=== PATIENT | female | born 1965 | race Caucasian/White ===

== ENCOUNTER 2021-01-04 13:58 | Outpatient (CLI) | payer BC, SELFPAY | END 2021-01-04 13:59 | disposition home or self-care (01) | LOC: ANHCOVIDVC 13:58 | PROVIDERS: PCP Family Medicine | DX: Z23 Encounter for immunization (principal) | CPT/HCPCS: 0001A; 91300 ==

== ENCOUNTER 2021-01-25 13:59 | Outpatient (CLI) | payer BC, SELFPAY | END 2021-01-25 14:00 | disposition home or self-care (01) | LOC: ANHCOVIDVC 13:59 | PROVIDERS: PCP Family Medicine | DX: Z23 Encounter for immunization (principal) | CPT/HCPCS: 0002A; 91300 ==

== ENCOUNTER 2021-05-22 01:11 | Day surgery (SDC) | payer BC, SELFPAY ==
[2021-05-09 09:21] VITALS: BMI 32.3
[2021-05-22 10:19] VITALS: BP 122/80; PULSE 100; RESP 16; TEMP 36; O2SAT 100
[2021-05-22] MEDS: LACTATED RINGERS 1,000 ML 150 ML IV CONT (10:43)
--- NOTE | 2021-05-22 10:43 | P.PNAN_ITS ---
Anes - Initial Pre Proc Eval Procedure: Operation Date: 05/22/21 11:15 Proposed Procedures p Esophagogastroduodenoscopy & Colonoscopy - Josemanuel Ruby MD Date/Time: 05/22/21 10:43 Surgeon: Josemanuel Ruby MD Pre Op Diagnosis: iron def anemia Patient Data Age: 55 Gender: F Height: 1.65 m Weight: 87.4 kg Last Vital Signs Temp 36.0 C L 05/22/21 10:19 Pulse 100 05/22/21 10:19 Resp 16 05/22/21 10:19 BP 122/80 05/22/21 10:19 Pulse Ox 100 05/22/21 10:19 Allergies Allergy/AdvReac Type Severity Reaction Status Date / Time moxifloxacin Allergy Severe swelling Verified 05/22/21 10:18 Penicillins Allergy Severe hives/swelling/diff Verified 05/22/21 10:18 breathing Home Medications Medication Instructions Recorded Confirmed Type omeprazole 40 mg capsule,delayed 40 mg PO DAILY #90 cap 12/18/19 05/09/21 Rx release ergocalciferol (vitamin D2) 1,250 50,000 unit PO WEEKLY #14 cap 02/26/20 05/09/21 Rx mcg (50,000 unit) capsule fluoxetine 20 mg capsule 20 mg PO DAILY #90 cap 04/07/21 05/09/21 Rx levothyroxine 88 mcg tablet 88 mcg PO DAILY #90 tablet 04/07/21 05/09/21 Rx Thrive Multivitamin 1 tablet PO DAILY 05/09/21 05/09/21 History loratadine [Claritin] 10 mg PO DAILY 05/09/21 05/09/21 History naproxen sodium [Aleve] 220 mg PO BID PRN 05/09/21 05/09/21 History Patient hx anesthesia problems: none Family hx anesthesia problems: none PMFSH Past Medical History Medical History Hypotension Hypothyroidism (acquired) MDD (major depressive disorder), recurrent episode, moderate Surgical History Surgical History (Updated 05/22/21 @ 10:43 by Bobby Gonzalez MD) [place] teeth extracted Family History Family History Mother Family history of thyroid disease Social History Social History Social History: Smoking status: Never smoker Second hand tobacco smoke exposure: No Alcohol intake: current Drinks per week: 2 Alcohol use details: Socially- once per month Substance use: never Substance use type: does not use Living arrangements: with family Gender identity (if verbalized by the patient): Female Spiritual care concerns: No Anes - Eval Final PreProcedure Day of Procedure 05/22/21 10:43 Patient weight: obese Heart: regular rate and rhythm Lungs: clear to auscultation Airway: Mallampati scale class II Neurological: alert and oriented Last oral intake: >/= 8 hours ASA classification: II Emergent: no Anesthetic plan: proceed Anesthesia type and monitoring: general GIVS and standard monitoring Informed Consent: The patient's anesthetic plan and its attendant risks and b enefits were discussed with the patient/family/POA. Questions were solicited and answers provided to the satisfaction of the patient/family/POA.
--- NOTE | 2021-05-22 10:53 | PM.HPGS ---
History of Present Illness History of Present Illness Consent: Risks, benefits, and alternatives have been discussed and questions answered. Patient agrees to proceed with procedure. Chief complaint: iron def anemia Narrative: Barbara Castro is a 55 year old female with gerd better with omeprazole, recent CXR showed possible hiatal hernia. She neve had scopes. Review of Systems Constitutional: Constitutional: Denies headache(s) and Denies weakness Eyes: Eyes: Denies blurry vision ENT: Reports Normal hearing present, Denies headache(s) and Denies neck pain Cardiovascular: Cardiovascular: Denies chest pain and Denies dyspnea Respiratory: Respiratory: Denies dyspnea Gastrointestinal: Gastrointestinal: Reports no additional gastrointestinal complaints Genitourinary: Genitourinary: Denies dysuria Musculoskeletal: Musculoskeletal: Denies neck pain Integumentary/Breasts: Skin/Breast: Denies dry skin Neurologic: Reports Normal hearing present, Denies headache(s) and Denies weakness Psychiatric: Psychiatric: Denies anxiety Endocrine: Endocrine: Denies change in body appearance Hematologic/Lymphatic: Hematologic/Lymphatic: Denies easy bleeding Allergic/Immunologic: Allergic/Immunologic: Denies urticaria PMFSH Past Medical History Medical History Hypotension Hypothyroidism (acquired) MDD (major depressive disorder), recurrent episode, moderate Surgical History Surgical History (Updated 05/22/21 @ 10:43 by Bobby Gonzalez MD) [place] teeth extracted Family History Family History Mother Family history of thyroid disease Social History Social History Social History: Smoking status: Never smoker Second hand tobacco smoke exposure: No Alcohol intake: current Drinks per week: 2 Alcohol use details: Socially- once per month Substance use: never Substance use type: does not use Living arrangements: with family Gender identity (if verbalized by the patient): Female Spiritual care concerns: No Meds Home Medications and Allergies Home Medications Medication Instructions Recorded Confirmed Type omeprazole 40 mg capsule,delayed 40 mg PO DAILY #90 cap 12/18/19 05/09/21 Rx release ergocalciferol (vitamin D2) 1,250 50,000 unit PO WEEKLY #14 cap 02/26/20 05/09/21 Rx mcg (50,000 unit) capsule fluoxetine 20 mg capsule 20 mg PO DAILY #90 cap 04/07/21 05/09/21 Rx levothyroxine 88 mcg tablet 88 mcg PO DAILY #90 tablet 04/07/21 05/09/21 Rx Thrive Multivitamin 1 tablet PO DAILY 05/09/21 05/09/21 History loratadine [Claritin] 10 mg PO DAILY 05/09/21 05/09/21 History naproxen sodium [Aleve] 220 mg PO BID PRN 05/09/21 05/09/21 History Allergies Allergy/AdvReac Type Severity Reaction Status Date / Time moxifloxacin Allergy Severe swelling Verified 05/22/21 10:18 Penicillins Allergy Severe hives/swelling/diff Verified 05/22/21 10:18 breathing Vital Signs Vital Signs - 24 hr 05/22/21 10:19 Temperature 96.8 F L Pulse Rate 100 Respiratory Rate 16 Blood Pressure 122/80 Pulse Oximetry 100 Exam Const: General: comfortable and no acute distress HENMT: General nose exam: Normal nares present Eyes: General: appearance normal, both eyes and all related structures Neck: Neck: no JVD Resp: Auscultation: clear to auscultation bilaterally Cardio: Rate: regular rate Rhythm: regular rhythm GI: Inspection: non-distended GI Palp: Yes Soft to palpation Skin: General skin exam: normal color Neuro: General: gait normal Speech: normal speech Extrem: General: normal to inspection Psych: Mental Status: mental status grossly normal Assessment and Plan Assessment and plan (1) GERD (gastroesophageal reflux disease): Code(s): K21.9 - Gastro-esophageal reflux disease without esophagitis
[2021-05-22 11:24] LABS: Beta HCG Quantitative < 2.39 mIU/ML
[2021-05-22] MEDS: BENZOCAINE (*SP) 60 ML SPRAY CAN (HURRICAINE) 1 SPRAY MUCOUS MEM (11:48)
[2021-05-22 12:19] VITALS: BP 114/63; PULSE 61; RESP 16; O2SAT 97
[2021-05-22 12:29] VITALS: BP 100/54; PULSE 61; RESP 15; O2SAT 100
[2021-05-22 12:39] VITALS: BP 112/70; PULSE 67; RESP 18; O2SAT 100
== END 2021-05-22 12:57 | disposition home or self-care (01) ==
PROVIDERS: Anesthesiology; PCP Family Medicine; Visit Provider Internal Medicine Gastroenterology
PROC: 0DJ08ZZ Inspection of Upper Intestinal Tract, Via Natural or Artificial Opening Endoscopic (ICD-10-PCS; CPT 43235; principal; 2021-05-22 11:15)
DX: Z12.11 Encounter for screening for malignant neoplasm of colon (principal); K57.30 Diverticulosis of large intestine without perforation or abscess without bleeding; K64.8 Other hemorrhoids; K29.50 Unspecified chronic gastritis without bleeding; D50.0 Iron deficiency anemia secondary to blood loss (chronic); I95.9 Hypotension, unspecified; E03.9 Hypothyroidism, unspecified; F32.9 Major depressive disorder, single episode, unspecified; E66.9 Obesity, unspecified; Z68.32 Body mass index [BMI] 32.0-32.9, adult; K44.9 Diaphragmatic hernia without obstruction or gangrene
CPT/HCPCS: 45378; 43239; 36415; 84702; 88305; J2704; J7120

== ENCOUNTER 2021-06-01 08:33 | Emergency (ER) | payer BC, SELFPAY ==
--- NOTE | ~2021-06-01 | US_ITS ---
EXAMINATION: US right upper quadrant DATE: 06/01/2021 10:51 INDICATION: Right upper quadrant abdominal pain. Abnormal liver function tests. TECHNIQUE: Multiple grayscale and Doppler ultrasound images of the abdomen were obtained. COMPARISON: None FINDINGS: The visualized portions of the head and the pancreas are normal. The liver is notable witho ut focal lesion. No liver surface nodularity. There is normal flow in main portal vein. The gallbladd er is normal in size and contains sludge. No gallstones or gallbladder wall thickening. There was no sonographic Horton sign. The common duct is normal and measures 5 mm. IMPRESSION: 1. Gallbladder sludge. No evidence of acute cholecystitis. Reviewed, dictated and finalized at location A.
[2021-06-01 08:50] VITALS: BP 117/72; PULSE 85; RESP 16; TEMP 37; O2SAT 99
[2021-06-01 09:42] LABS: Basophils Percent Auto 0.5 % (0.2-1.2); Eosinophils Absolute Auto 0.3 K/mm3 (0-0.3); Eosinophils Percent Auto 3.9 % (0-4.4); Hematocrit 32.5 % (37.0-47.0); Immature Granulocyte Absolute 0.03 K/mm3 (0.00-0.031); Immature Granulocyte Percent A 0.5 % (0-0.5); Lymphocytes Absolute Auto 1.37 K/mm3 (0.9-3.2); Lymphocytes Percent Auto 21.6 % (18.3-44.2); Mean Corpuscular HGB Conc 30.8 g/dl (32-36); Mean Corpuscular Hemoglobin 24.9 pg (26-34); Mean Corpuscular Volume 80.8 fl (80-100); Mean Platelet Volume 9.4 fl (7.4-10.4); Monocytes Absolute Auto 0.4 K/mm3 (0.1-0.6); Monocytes Percent Auto 6.3 % (2.6-8.5); Neutrophils Absolute Auto 4.3 K/mm3 (1.3-6.7); Neutrophils Percent Auto 67.2 % (45.5-73.1); Platelet Count Result 268 k/mm3 (150-375); Red Blood Count 4.02 M/mm3 (4.2-5.4); Red Cell Distribution Width 16.3 % (11.5-14.5); White Blood Count 6.3 K/mm3 (4.5-10.0)
[2021-06-01 09:46] LABS: Add Urine Microscopic? YES; Appearance Urine Clear (Clear); Bilirubin Urine Negative (Negative); Blood Urine 1+ (Negative); Color Urine Yellow (Yellow); Glucose Urine UA Negative (Negative); Ketones Urine Negative (Negative); Leukocyte Esterase Ur Negative LEU/UL (Negative); Mucus Urine Rare /lpf; Nitrate Urine Negative (Negative); Protein Urine Negative (Negative); Specific Grav Ur 1.023 (1.001-1.035); Squamous Epithelial Cell Urine Rare /hpf (Few); WBC Urine 0-3 /hpf
[2021-06-01 09:55] LABS: Alanine Aminotransferase 36 U/L (4-35); Albumin Level 4.1 g/dL (3.5-5.1); Alkaline Phosphatase 88 U/L (38-126); Anion Gap 8 mmol/L (8-16); Aspartate Amino Transferase 76 U/L (14-36); Bilirubin,Total 0.4 mg/dL (0.2-1.3); Blood Urea Nitrogen 13 mg/dL (7-17); Calcium 8.8 mg/dL (8.4-10.2); Carbon Dioxide 25 mmol/L (22-30); Chloride 102 mmol/L (98-107); Estimated CRCL calculation 69 ml/min; Estimated Glomerular Filt Rate > 60; Glucose 93 mg/dL (65-110); Lipase 52 U/L (23-300); Potassium 3.8 mmol/L (3.4-5.0); Sodium 135 mmol/L (137-145)
--- NOTE | 2021-06-01 10:02 | ED.GENADULT ---
HPI - General Adult General Chief complaint: Abdominal Pain Stated complaint: abd pain Time Seen by Provider: 06/01/21 09:20 Source: patient Mode of arrival: ambulatory Limitations: no limitations History of Present Illness HPI narrative: Patient started having epigastric pain on Saturday, and was treating herself at home with Tums with no relief. This morning she had acute pain, epigastric that radiated around the right. She has not had anything to eat or drink, she does have nausea no vomiting. She states that her stools are wire spooler in color. Related Data Home Medications Medication Instructions Recorded Confirmed Thrive Multivitamin 1 tablet PO DAILY 05/09/21 05/09/21 loratadine [Claritin] 10 mg PO DAILY 05/09/21 05/09/21 naproxen sodium [Aleve] 220 mg PO BID PRN 05/09/21 05/09/21 Allergies Allergy/AdvReac Type Severity Reaction Status Date / Time moxifloxacin Allergy Severe swelling Verified 06/01/21 09:16 Penicillins Allergy Severe hives/swelling/diff Verified 06/01/21 09:16 breathing Review of Systems Review of Systems: All systems reviewed & are unremarkable except as noted in HPI and below PMFSH Past Medical History Medical History Hypotension Hypothyroidism (acquired) MDD (major depressive disorder), recurrent episode, moderate Surgical History Surgical History [place] teeth extracted Family History Family History Mother Family history of thyroid disease Social History Social History Social History: Smoking status: Never smoker Second hand tobacco smoke exposure: No Alcohol intake: current Drinks per week: 2 Alcohol use details: Socially- once per month Substance use: never Substance use type: does not use Gender identity (if verbalized by the patient): Female Spiritual care concerns: No Exam Const: General: no acute distress and alert Orientation/consciousness: patient oriented x3 HENMT: Head: normal to inspection Eyes: Pupils: Equal, round and reactive pupils present Resp: Effort & Inspection: normal respiratory effort Auscultation: clear to auscultation bilaterally Cardio: Rate: regular rate Rhythm: regular rhythm GI: GI Palp: Yes Soft to palpation and Yes Tenderness to palpation present (GI) (epigastric and RUQ) Auscultation: normal bowel sounds : General: Yes no CVA tenderness Skin: General skin exam: normal color Neuro: General: patient oriented x3 and moves all extremities Extrem: General: normal to inspection Psych: Mental Status: mental status grossly normal Course Course Emergency Course: Patient feels better after GI cocktail. Gallbladder ultrasound showed sludge and slight dilation of the common bile duct. Recommend that she follow-up with her primary care physician. In the meantime follow bland diet use Maalox as directed on the bottle. Vital Signs Vital signs: Vital Signs Temperature 37.0 C 06/01/21 08:50 Pulse Rate 85 06/01/21 08:50 Respiratory Rate 16 06/01/21 08:50 Blood Pressure 117/72 06/01/21 08:50 Pulse Oximetry 99 06/01/21 08:50 Temperature 37.0 C 06/01/21 08:50 Pulse Rate 79 06/01/21 11:08 Respiratory Rate 20 06/01/21 11:08 Blood Pressure 117/68 06/01/21 11:08 Pulse Oximetry 99 06/01/21 11:08 Medical Decision Making Vital Signs Vital Signs: Vital Signs Temperature 37.0 C 06/01/21 08:50 Pulse Rate 85 06/01/21 08:50 Respiratory Rate 16 06/01/21 08:50 Blood Pressure 117/72 06/01/21 08:50 Pulse Oximetry 99 06/01/21 08:50 Temperature 37.0 C 06/01/21 08:50 Pulse Rate 79 06/01/21 11:08 Respiratory Rate 20 06/01/21 11:08 Blood Pressure 117/68 06/01/21 11:08 Pulse Oximetry 99 06/01/21 11:08 Lab Data
[2021-06-01] MEDS: BELLADONNA ALK/PHENOB ELIX 10 ML, MAG HYDROX/ALUMINUM HYD/SIMETH 30 ML, LIDOCAINE HCL 2... PO (10:50)
[2021-06-01 11:08] VITALS: BP 117/68; PULSE 79; RESP 20; O2SAT 99
[2021-06-01 12:24] VITALS: BP 115/73; PULSE 83; RESP 17; O2SAT 100
== END 2021-06-01 12:26 | disposition home or self-care (01) ==
PROVIDERS: Emergency Provider Emergency Medicine; PCP Family Medicine
DX: K44.9 Diaphragmatic hernia without obstruction or gangrene (principal); R10.11 Right upper quadrant pain; E03.9 Hypothyroidism, unspecified
CPT/HCPCS: 36415; 76705; 80053; 81001; 81025; 83690; 85025; 99284; A9270

== ENCOUNTER 2022-09-28 09:03 | Outpatient (CLI) | payer BC, SELFPAY ==
--- NOTE | ~2022-09-28 | US_ITS ---
US abdomen complete EXAMINATION: US Abdomen Complete INDICATION: Abnormal liver function tests. PROCEDURE: Realtime High Resolution abdomen ultrasound. COMPARISON: No prior studies for comparison FINDINGS: Gallbladder is contracted and contains stones. Common bile duct measures 3.7 mm mm. Liver echotexture within normal limits without focal mass. Pancreas within normal limits. Pancreati c tail is obscured by bowel gas. Spleen is unremarkeable. Renal echotexture is within normal limits bilaterally without hydronephrosis, contour deforming mass or renal stone. Right kidney measures 9.4 cm. Left kidney measures 11 cm. Visualized aspects of the aorta and IVC are within normal limits. Portal vein is patent. No sonograph ic Horton's sign indicated by the technologist. IMPRESSION: 1: Cholelithiasis. Reviewed, dictated and finalized at location A. 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
== END 2022-09-28 09:04 | disposition home or self-care (01) ==
PROVIDERS: PCP Family Medicine; Visit Provider Nurse Practitioner Gerontology
DX: K82.8 Other specified diseases of gallbladder (principal); R74.8 Abnormal levels of other serum enzymes; K80.20 Calculus of gallbladder without cholecystitis without obstruction
CPT/HCPCS: 76700

== ENCOUNTER 2022-10-16 19:23 | Emergency (ER) | payer BC, SELFPAY ==
--- NOTE | ~2022-10-16 | US_ITS ---
EXAMINATION: US right upper quadrant DATE: 10/16/2022 22:47 INDICATION: RUQ pain TECHNIQUE: Multiple grayscale and Doppler ultrasound images of the right upper quadrant were obtained . COMPARISON: 09/28/2022. FINDINGS: The visualized portions of the pancreas are normal. The liver is normal with normal echogen icity and echotexture. No surface nodularity. Normal hepatopetal flow in the main portal vein. Multip le nonmobile gallstones. Mild wall thickening of the gallbladder up to 4 mm. No pericholecystic fluid . The common bile duct measures 6 mm. There was no sonographic Horton sign. IMPRESSION: Cholelithiasis with mild gallbladder wall thickening.. Reviewed, dictated and finalized at location K. 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
[2022-10-16 19:35] VITALS: BP 101/53; PULSE 82; RESP 16; TEMP 36.4; O2SAT 100
[2022-10-16 20:10] LABS: Basophils Percent Auto 0.5 % (0.2-1.2); Eosinophils Absolute Auto 0.2 K/mm3 (0-0.3); Eosinophils Percent Auto 3.2 % (0-4.4); Hematocrit 34.9 % (37.0-47.0); Immature Granulocyte Absolute 0.05 K/mm3 (0.00-0.031); Immature Granulocyte Percent A 0.7 % (0-0.5); Lymphocytes Absolute Auto 2.25 K/mm3 (0.9-3.2); Lymphocytes Percent Auto 29.8 % (18.3-44.2); Mean Corpuscular HGB Conc 34.4 g/dl (32-36); Mean Corpuscular Hemoglobin 29.3 pg (26-34); Mean Corpuscular Volume 85.1 fl (80-100); Mean Platelet Volume 9.1 fl (7.4-10.4); Monocytes Absolute Auto 0.8 K/mm3 (0.1-0.6); Monocytes Percent Auto 10.3 % (2.6-8.5); Neutrophils Absolute Auto 4.2 K/mm3 (1.3-6.7); Neutrophils Percent Auto 55.5 % (45.5-73.1); Platelet Count Result 244 k/mm3 (150-375); Red Cell Distribution Width 15.2 % (11.5-14.5); White Blood Count 7.6 K/mm3 (4.5-10.0)
[2022-10-16 20:20] LABS: Alanine Aminotransferase 20 U/L (6-35); Albumin Level 4.3 g/dL (3.5-5.1); Alkaline Phosphatase 70 U/L (38-126); Anion Gap 5 mmol/L (8-16); Aspartate Amino Transferase 22 U/L (14-36); Bilirubin,Total 0.3 mg/dL (0.2-1.3); Blood Urea Nitrogen 11 mg/dL (7-17); Calcium 8.4 mg/dL (8.4-10.2); Carbon Dioxide 28 mmol/L (22-30); Chloride 101 mmol/L (98-107); Estimated CRCL calculation 87 ml/min; Estimated Glomerular Filt Rate > 60; Glucose 73 mg/dL (65-110); Lipase 46 U/L (23-300); Potassium 3.4 mmol/L (3.4-5.0); Sodium 134 mmol/L (137-145)
[2022-10-16 20:39] LABS: Add Urine Microscopic? NO; Appearance Urine Clear (Clear); Bilirubin Urine Negative (Negative); Blood Urine Negative (Negative); Color Urine Light Yellow (Yellow); Glucose Urine UA Negative (Negative); Ketones Urine Negative (Negative); Leukocyte Esterase Ur Negative LEU/UL (Negative); Nitrate Urine Negative (Negative); Protein Urine Negative (Negative); Urobilinogen Urine 0.2 mg/dL (<2.0)
[2022-10-16 20:44] LABS: Mucus Urine Rare /lpf; RBC Urine 0-2 /hpf (0-2); Squamous Epithelial Cell Urine Few /hpf (Few); WBC Urine 0-3 /hpf
[2022-10-16] MEDS: MORPHINE SULFATE (*CRX) 4 MG/ML INJ IV PUSH (22:51)
--- NOTE | 2022-10-16 23:38 | ED.ABDPAIN ---
HPI - Abdominal Pain General Chief Complaint: Abdominal Pain Stated Complaint: abd pain Time Seen by Provider: 10/16/22 22:04 History of Present Illness HPI narrative: Patient is a 56-year-old female who presents to the ER with right upper quadrant abdominal pain. Patient has history of biliary sludge. She has had some persistent nausea and was referred to general surgery. She was seen by Dr. Carey today. Ironically she had her first episode of sharp right upper quadrant pain this morning prior to seeing him. She has had a second 1 since having left the office. She does have surgery scheduled in October. She reports persistent nausea. No fevers or chills or sweats. Patient reports pain is sharp and stabbing and radiates to her right shoulder. No difficulty breathing. She has no pain medication or antiemetics at home. No alleviating factors. Do not feel like her pain was associated with eating or drinking today. Related Data Home Medications Medication Instructions Recorded Confirmed Thrive Multivitamin 1 tablet PO DAILY 05/09/21 10/16/22 loratadine 10 mg tablet (Claritin) 10 mg PO DAILY 05/09/21 10/16/22 Allergies Allergy/AdvReac Type Severity Reaction Status Date / Time moxifloxacin Allergy Severe swelling Verified 10/16/22 13:02 Penicillins Allergy Severe hives/swelling/diff Verified 10/16/22 13:02 breathing Review of Systems Review of Systems: All systems reviewed & are unremarkable except as noted in HPI and below Constitutional: Constitutional: Denies chills and Denies fever(s) ENT: Denies nasal congestion and Denies sore throat Cardiovascular: Cardiovascular: Denies chest pain, Denies rapid heart rate and Denies radiating jaw, neck or arm pain Respiratory: Respiratory: Denies cough and Denies dyspnea Gastrointestinal: Gastrointestinal: Reports abdominal pain, Reports nausea and Denies vomiting PMF Past Medical History Medical History Anemia GERD (gastroesophageal reflux disease) Hypotension Hypothyroidism (acquired) MDD (major depressive disorder), recurrent episode, moderate Surgical History Surgical History History of dilatation and curettage [place] teeth extracted Family History Family History Mother Family history of thyroid disease Father Acute myocardial infarction Grandparent Diabetes mellitus Social History Social History Social History: Smoking status: Never smoker Second hand tobacco smoke exposure: No Alcohol intake: current Alcohol use details: Socially Substance use: never Substance use type: does not use 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 Gender identity (if verbalized by the patient): Female Sexual Orientation (if Verbalized by the Patient): Straight or Heterosexual Spiritual care concerns: No Exam Narrative: GENERAL: Well-appearing, well-nourished, and in no acute distress. HEAD: Normocephalic, atraumatic. EYES: PERRL and EOMI. ENT: Mucous membranes moist. CHEST: Clear to auscultation. No respiratory distress. HEART: Regular rate and rhythm. Normal peripheral pulses. ABDOMEN: Soft, tender palpation right upper quadrant with guarding, nondistended, normal active bowel sounds. EXTREMITIES: Normal range of motion. No edema. SKIN: Warm, dry, no rash. NEURO: Alert and oriented x3. PSYCH: Normal mood and affect. Course Course Emergency Course: Discussed evaluation/labs/imaging with Dr. Sweeney with general surgery. Recommends discharge home with oral pain/nausea control. Patient comfortable with this plan. Vital Signs Vital signs: Vital Signs Temperature 97.6 F 10/16/22 19:35 Pulse Rate 82 10/16/22 19:35 Respiratory Rate 16 10/16/22 19:35 Blood Pressure 101/
[2022-10-17] MEDS: HYDROcodone/acetaminophen (*CRX) 5-325 MG TABLET 1 TAB PO (01:14)
[2022-10-17 01:21] VITALS: BP 102/57; PULSE 80; RESP 17; O2SAT 100
== END 2022-10-17 01:22 | disposition home or self-care (01) ==
PROVIDERS: Emergency Provider Emergency Medicine; PCP Family Medicine
DX: K80.20 Calculus of gallbladder without cholecystitis without obstruction (principal); K21.9 Gastro-esophageal reflux disease without esophagitis; E03.9 Hypothyroidism, unspecified; D64.9 Anemia, unspecified; F32.9 Major depressive disorder, single episode, unspecified
CPT/HCPCS: 36415; 76705; 80053; 81003; 81025; 83690; 85025; 96374; 99284; A9270; J2270

== ENCOUNTER 2022-10-18 12:14 | Outpatient (CLI) | payer BC, SELFPAY ==
[2022-10-18 13:16] LABS: Amylase 84 U/L (30-110)
== END 2022-10-18 12:15 | disposition home or self-care (01) ==
PROVIDERS: PCP Family Medicine; Visit Provider Surgery
DX: Z01.818 Encounter for other preprocedural examination (principal); K80.10 Calculus of gallbladder with chronic cholecystitis without obstruction
CPT/HCPCS: 36415; 82150; 86850; 86900; 86901

== ENCOUNTER 2022-10-25 07:31 | Day surgery (SDC) | payer BC, SELFPAY ==
[2022-10-25] VITALS (24 sets, daily range): BP systolic 106–127; BP diastolic 50–93; PULSE 60–102; RESP 10–20; TEMP 36.1–36.5; O2SAT 94–100
--- NOTE | ~2022-10-25 | US_ITS ---
Limited Abdominal Sonogram: Real-time sonographic imaging of the right upper quadrant was performed. Clinical History: Gallbladder disease Findings: The liver appears normal with no evidence of mass lesion or bile duct dilatation. Main por gareth vein demonstrates normal direction of flow. The gallbladder is well distended, and contains layer ing sludge and/or small stones. No gallbladder wall thickening. The common bile duct measures 8 mm. The visualized pancreas, aorta, and IVC are unremarkable. Impression: Gallbladder sludge and/or stones. No gallbladder wall thickening. Mildly dilated common bile duct. Consider MRCP for further evaluation as indicated. Reviewed, dictated and finalized at location . [employer] Impression: Gallbladder sludge and/or stones. No gallbladder wall thickening. Mildly dilated common bile duct. Consider MRCP for further evaluation as indica chidi.
[2022-10-25 07:56] LABS: Basophils Absolute Auto 0.1 K/mm3 (0.0-0.1); Basophils Percent Auto 0.9 % (0.2-1.2); Eosinophils Absolute Auto 0.2 K/mm3 (0-0.3); Eosinophils Percent Auto 2.8 % (0-4.4); Hemoglobin 12.1 g/dL (12.0-15.0); Immature Granulocyte Absolute 0.03 K/mm3 (0.00-0.031); Immature Granulocyte Percent A 0.6 % (0-0.5); Lymphocytes Absolute Auto 1.15 K/mm3 (0.9-3.2); Lymphocytes Percent Auto 21.5 % (18.3-44.2); Mean Corpuscular HGB Conc 33.6 g/dl (32-36); Mean Corpuscular Hemoglobin 29.6 pg (26-34); Mean Platelet Volume 9.2 fl (7.4-10.4); Monocytes Absolute Auto 0.5 K/mm3 (0.1-0.6); Monocytes Percent Auto 10.1 % (2.6-8.5); Neutrophils Absolute Auto 3.4 K/mm3 (1.3-6.7); Neutrophils Percent Auto 64.1 % (45.5-73.1); Platelet Count Result 230 k/mm3 (150-375); Red Blood Count 4.09 M/mm3 (4.2-5.4); Red Cell Distribution Width 15.2 % (11.5-14.5); White Blood Count 5.4 K/mm3 (4.5-10.0)
--- NOTE | 2022-10-25 07:59 | ED.ABDPAIN ---
HPI - Abdominal Pain General Chief Complaint: Abdominal Pain Stated Complaint: gallbladder attack , sx with Aurelio 10/31 Time Seen by Provider: 10/25/22 07:59 Source: patient and family Mode of arrival: ambulatory Limitations: no limitations History of Present Illness HPI narrative: 57 years old white female came to the emergency room by private car complaining of sudden onset of severe aching pain in the epigastric area and right upper quadrant associated with nausea and vomiting bile once at 630 this morning. Patient had similar symptoms over 1 year, worse over the last 2 weeks, scheduled for cholecystectomy next week by Dr. Carey. She denies any fever or chills.. Last meal was 10-hour prior to the beginning of her symptoms. Related Data Home Medications Medication Instructions Recorded Confirmed Thrive Multivitamin 1 tablet PO DAILY 05/09/21 10/17/22 loratadine 10 mg tablet (Claritin) 10 mg PO DAILY PRN Allergy Symptoms 05/09/21 10/17/22 ascorbic acid (vitamin C) 500 mg 500 mg PO DAILY 10/17/22 10/17/22 tablet (Vitamin C) Allergies Allergy/AdvReac Type Severity Reaction Status Date / Time moxifloxacin Allergy Severe swelling Verified 10/25/22 07:44 Penicillins Allergy Severe hives/swelling/diff Verified 10/25/22 07:44 breathing Review of Systems Review of Systems: All systems reviewed & are unremarkable except as noted in HPI and below PMFSH Past Medical History Medical History Anemia GERD (gastroesophageal reflux disease) Hypotension Hypothyroidism (acquired) MDD (major depressive disorder), recurrent episode, moderate Surgical History Surgical History History of dilatation and curettage [place] teeth extracted Family History Family History Mother Family history of thyroid disease Father Acute myocardial infarction Grandparent Diabetes mellitus Social History Social History Social History: Smoking status: Never smoker Second hand tobacco smoke exposure: No Alcohol intake: current Alcohol use details: SPECIAL OCCASIONS Substance use: never Substance use type: does not use 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 [employer] Gender identity (if verbalized by the patient): Female Sexual Orientation (if Verbalized by the Patient): Straight or Heterosexual Spiritual care concerns: No Exam Narrative: General appearance: Well-developed, well-nourished Skin: Normal color Head: Normocephalic, nontraumatic Eyes: Clear conjunctiva ENT: Oropharynx normal, ears normal, nose normal Neck: Supple, nontender Chest and respiratory: Airway patent, no respiratory distress, no accessory muscle use Heart: Regular rate/rhythm Abdomen: Soft, tender epigastric and right upper quadrant, negative Horton sign., no organomegaly, quiet bowel sounds Vascular: Normal peripheral pulses, normal capillary refill. 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 Work-up did showed gallbladder sludge and order stone, no gall bladder wall thickening. Mild dilated common bile duct, consider MRCP for further evaluation as indicated. No fever, no leukocytosis, normal liver enzymes. Reevaluation(s) Reevaluation #1: Currently patient pain is 1 out o
[2022-10-25] MEDS: ONDANSETRON INJ 4 MG/2 ML VIAL IV PUSH ×3 (08:08→16:39)
[2022-10-25 08:09] LABS: Potassium 3.8 mmol/L (3.4-5.0)
[2022-10-25] MEDS: SODIUM CHLORIDE 0.9% IV 1,000 ML 999 ML IV CONT (08:10)
[2022-10-25] MEDS: HYDROmorphone HCL INJ (*CRX) 1 MG/ML SYR 0.5 MG IV PUSH (08:10)
[2022-10-25 08:14] LABS: Alanine Aminotransferase 32 U/L (6-35); Albumin Level 4.1 g/dL (3.5-5.1); Alkaline Phosphatase 91 U/L (38-126); Anion Gap 5 mmol/L (8-16); Aspartate Amino Transferase 57 U/L (14-36); Bilirubin,Total 0.6 mg/dL (0.2-1.3); Blood Urea Nitrogen 15 mg/dL (7-17); Calcium 8.8 mg/dL (8.4-10.2); Carbon Dioxide 25 mmol/L (22-30); Chloride 104 mmol/L (98-107); Estimated CRCL calculation 76 ml/min; Estimated Glomerular Filt Rate > 60; Glucose 102 mg/dL (65-110); Lipase 49 U/L (23-300); Sodium 134 mmol/L (137-145)
[2022-10-25 08:57] LABS: Add Urine Microscopic? NO; Appearance Urine Clear (Clear); Bilirubin Urine Negative (Negative); Blood Urine Negative (Negative); Color Urine Yellow (Yellow); Glucose Urine UA Negative (Negative); Ketones Urine Negative (Negative); Leukocyte Esterase Ur Negative LEU/UL (Negative); Nitrate Urine Negative (Negative); Protein Urine Negative (Negative)
--- NOTE | 2022-10-25 12:08 | WPDANESEPPF ---
Anes - Initial Pre Proc Eval Procedure: Operation Date: 10/25/22 14:30 Proposed Procedures p Laparoscopic Cholecystectomy - Frankie Martinez MD Date/Time: 10/25/22 12:08 Pre Op Diagnosis: Epigastric pain Patient Data Age: 57 Gender: F Height: 1.65 m Weight: 88.4 kg Last Vital Signs Temp 36.5 C 10/25/22 07:40 Pulse 68 10/25/22 12:06 Resp 20 10/25/22 12:06 BP 115/93 H 10/25/22 12:06 Pulse Ox 96 10/25/22 12:06 Allergies Allergy/AdvReac Type Severity Reaction Status Date / Time moxifloxacin Allergy Severe swelling Verified 10/25/22 07:44 Penicillins Allergy Severe hives/swelling/diff Verified 10/25/22 07:44 breathing Home Medications Medication Instructions Recorded Confirmed Type omeprazole 40 mg capsule,delayed 40 mg PO DAILY #90 caps 12/18/19 10/17/22 Rx release Thrive Multivitamin 1 tablet PO DAILY 05/09/21 10/17/22 History loratadine 10 mg tablet (Claritin) 10 mg PO DAILY PRN Allergy Symptoms 05/09/21 10/17/22 History fluoxetine 20 mg capsule 20 mg PO DAILY #90 caps 07/05/22 10/17/22 Rx levothyroxine 88 mcg tablet See Rx Instructions .Route 07/05/22 10/17/22 Rx .COMPLEX #90 tabs polysaccharide iron complex 150 mg See Rx Instructions .Route 07/31/22 10/17/22 Rx iron capsule .COMPLEX #30 caps ergocalciferol (vitamin D2) 1,250 See Rx Instructions .Route 08/14/22 10/17/22 Rx mcg (50,000 unit) capsule .COMPLEX #13 caps ascorbic acid (vitamin C) 500 mg 500 mg PO DAILY 10/17/22 10/17/22 History tablet (Vitamin C) hydrocodone 5 mg-acetaminophen 325 1 tablet PO Q6H PRN pain #20 tabs 10/17/22 10/17/22 Rx mg tablet ondansetron 4 mg disintegrating 4 mg PO Q6H PRN nausea and 10/17/22 10/17/22 Rx tablet vomiting #12 tabs Laboratory Tests 10/25/22 10/25/22 10/25/22 07:51 07:51 08:50 WBC 5.4 K/mm3 K/mm3 (4.5-10.0) RBC 4.09 M/mm3 L M/mm3 (4.2-5.4) Hgb 12.1 g/dL g/dL (12.0-15.0) Hct 36.0 % L % (37.0-47.0) MCV 88.0 fl fl (80-100) MCH 29.6 pg pg (26-34) MCHC 33.6 g/dl g/dl (32-36) RDW 15.2 % H % (11.5-14.5) Plt Count 230 k/mm3 k/mm3 (150-375) MPV 9.2 fl fl (7.4-10.4) Immature Gran % (Auto) 0.6 % H % (0-0.5) Neut % (Auto) 64.1 % % (45.5-73.1) Lymph % (Auto) 21.5 % % (18.3-44.2) [place] % (Auto) 10.1 % H % (2.6-8.5) Eos % (Auto) 2.8 % % (0-4.4) Baso % (Auto) 0.9 % % (0.2-1.2) Lymph # (Auto) 1.15 K/mm3 K/mm3 (0.9-3.2) [place] # (Auto) 0.5 K/mm3 K/mm3 (0.1-0.6) Eos # (Auto) 0.2 K/mm3 K/mm3 (0-0.3) Baso # (Auto) 0.1 K/mm3 K/mm3 (0.0-0.1) Abs Immat Gran (auto) 0.03 K/mm3 K/mm3 (0.00-0.031) Absolute Neuts (auto) 3.4 K/mm3 K/mm3 (1.3-6.7) Absolute Nucleated RBC 0.0 K/mm3 K/mm3 (0.0-0.012) Nucleated RBC % 0.0 % % (0.0-0.2) Sodium 134 mmol/L L mmol/L (137-145) Potassium 3.8 mmol/L mmol/L (3.4-5.0) Chloride 104 mmol/L mmol/L (98-107) Carbon Dioxide 25 mmol/L mmol/L (22-30) Anion Gap 5 mmol/L L mmol/L (8-16) BUN 15 mg/dL mg/dL (7-17) Creatinine 0.80 mg/dL mg/dL (0.7-1.0) Estim Creat Clear Calc 76 ml/min ml/min Estimated GFR > 60 (59 - ) Glucose 102 mg/dL mg/dL (65-110) Calcium 8.8 mg/dL mg/dL (8.4-10.2) Total Bilirubin 0.6 mg/dL mg/dL (0.2-1.3) AST 57 U/L H U/L (14-36) ALT 32 U/L U/L (6-35) Alkaline Phosphatase 91 U/L U/L (38-126) Total Protein 7.0 g/dL g/dL (6.3-8.2) Albumin 4.1 g/dL g/dL (3.5-5.1) Lipase 49 U/L U/L (23-300) Urine Color Yellow (Yellow) Urine Appearance Clear (Clear) Urine pH 8.0 (5.0-9.0) Ur Specific [place] 1.020 (1.001-1.035
--- NOTE | 2022-10-25 13:18 | PM.SD2 ---
Same Day Admit/Disch: HPI History of Present Illness Chief complaint: Cholelithiasis Narrative: Barbara Castro is a 57 year old female who has had recurrent episodes of postprandial epigastric and right upper quadrant abdominal pain for over a year. She was initially scheduled to have a laparoscopic cholecystectomy with 1 of my partners last year but had to cancel due to an illness in 1 of her children. She has continued to have trouble and saw Dr. Carey. She was scheduled to have surgery 1 week from today but had another severe attack with vomiting. This was epigastric and right upper quadrant abdominal pain. Associated with nausea and vomiting. Ultrasound shows sludge and gallstones. Low the patient did improve with some analgesics in the emergency room, she and her did not want to be discharged and try to wait until to have surgery. She is taken to surgery now for laparoscopic cholecystectomy for chronic cholecystitis with gallstones. [facility] Past Medical History Medical History Anemia GERD (gastroesophageal reflux disease) Hypotension Hypothyroidism (acquired) MDD (major depressive disorder), recurrent episode, moderate Surgical History Surgical History History of dilatation and curettage [place] teeth extracted Family History Family History Mother Family history of thyroid disease Father Acute myocardial infarction Grandparent Diabetes mellitus Social History Social History Social History: Smoking status: Never smoker Second hand tobacco smoke exposure: No Alcohol intake: current Alcohol use details: SPECIAL OCCASIONS Substance use: never Substance use type: does not use 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 [employer] Gender identity (if verbalized by the patient): Female Sexual Orientation (if Verbalized by the Patient): Straight or Heterosexual Spiritual care concerns: No Same Day Admit/Disch: Med Pre-admit Medications Home Medications Medication Instructions Recorded Confirmed Type omeprazole 40 mg capsule,delayed 40 mg PO DAILY #90 caps 12/18/19 10/25/22 Rx release Thrive Multivitamin 1 tablet PO DAILY 05/09/21 10/25/22 History loratadine 10 mg tablet (Claritin) 10 mg PO DAILY PRN Allergy Symptoms 05/09/21 10/25/22 History fluoxetine 20 mg capsule 20 mg PO DAILY #90 caps 07/05/22 10/25/22 Rx levothyroxine 88 mcg tablet See Rx Instructions .Route 07/05/22 10/25/22 Rx .COMPLEX #90 tabs polysaccharide iron complex 150 mg See Rx Instructions .Route 07/31/22 10/25/22 Rx iron capsule .COMPLEX #30 caps ergocalciferol (vitamin D2) 1,250 See Rx Instructions .Route 08/14/22 10/25/22 Rx mcg (50,000 unit) capsule .COMPLEX #13 caps ascorbic acid (vitamin C) 500 mg 500 mg PO DAILY 10/17/22 10/25/22 History tablet (Vitamin C) hydrocodone 5 mg-acetaminophen 325 1 tablet PO Q6H PRN pain #20 tabs 10/17/22 10/25/22 Rx mg tablet ondansetron 4 mg disintegrating 4 mg PO Q6H PRN nausea and 10/17/22 10/25/22 Rx tablet vomiting #12 tabs hydrocodone 5 mg-acetaminophen 325 1 - 2 tablet PO Q6H PRN pain #15 10/25/22 Rx mg tablet tabs ketorolac 10 mg tablet 10 mg PO Q6H 4 days #16 tabs 10/25/22 Rx Exam Const: General: comfortable, no acute distress, alert and awake HENMT: Head: normocephalic and atraumatic Mouth: Yes Normal oral and palatal mucosa present Eyes: Conjunctivae: conjunctivae normal Pupils: Equal, round and reactive pupils present EOM: EOMs intact bilaterally Neck: Neck: normal visual inspection, no lymphadenopathy and nontender Resp: Effort & Inspection: normal respiratory effort Auscultation: clear to auscultation bilaterally Cardio: Rate: regular rate Rhythm: regular rhythm Heart sounds: no gallops, n
[2022-10-25] MEDS: LACTATED RINGERS 1,000 ML 30 ML IV CONT ×2 (13:24→16:07)
--- NOTE | 2022-10-25 14:04 | WPDHPUPDATE1 ---
History and Physical Update Update Date/Time: 10/25/22 14:04 History and Physical has been reviewed, including an updated exam of the patient. There are NO changes in the patient's condition. Risks, benefits, and alternatives have been discussed and questions answered. Patient agrees to proceed with procedure.
[2022-10-25] MEDS: ceFAZolin 2 GM/D5W 50 ML 2 GM/50 ML BAG IVPB (14:11)
[2022-10-25] MEDS: BUPIVACAINE/EPINEPHRINE 0.5% 30 ML VIAL INFILTRATE (14:33)
--- NOTE | 2022-10-25 15:15 | P.OP_ITS ---
Procedure Note - Detailed Date of Procedure 10/25/22 Pre-op Diagnosis Chronic cholecystitis, cholelithiasis Post-op Diagnosis Same Procedure Performed Laparoscopic cholecystectomy Surgeon rFankie Martinez MD Painter Helper Sign Lo BETH Anesthesia General and Local (0.5% Marcaine with epinephrine) Indications Patient is a 57-year-old woman who has been troubled with postprandial right upper quadrant abdominal pain for over a year. She has had previous ultrasounds which showed gallstones. In the last few weeks, she has had episodes of biliary colic even when not eating. She came to the emergency room today with similar symptoms. Ultrasound showed sludge in gallstones. She desired to proceed with cholecystectomy as soon as possible. She is taken to surgery now for laparoscopic cholecystectomy. Findings There were some chronic inflammatory changes in the gallbladder. There were stones present, there was very thick bile. There was no biliary ductal dilatation and no liver abnormalities. Description of Procedure Patient was taken to surgery and induced into general anesthesia. The abdomen is prepped draped. Trocars were placed in the usual fashion using applied Co dical optical trocars and a 5 mm camera. The gallbladder was decompressed with a laparoscopic aspirator. It could only be partially decompressed as the bile was thick and did not pass through the laparoscopic aspirator very well. We closed the cholecystotomy with a Vicryl endoloop. The gallbladder was then retracted anterosuperiorly. Dissection was carried out in the cholecystohepatic triangle. The cystic duct and cystic artery were dissected out very clearly. Gallbladder was dissected off the liver its lower 3rd. Critical view was achieved. We then securely clipped and divided the cystic duct and cystic artery. The gallbladder was then further dissected free of its peritoneal attachments to the liver. Cautery was used for hemostasis of the gallbladder fossa. Gallbladder was then placed in an Endo-Catch bag and retrieved through the 10 11 epigastric trocar site. We then replaced the epigastric trocar reviewed the gallbladder fossa in the areas of dissection. Irrigation and suctioning were carried out. Some additional cautery on the gallbladder fossa was performed. Again thorough irrigation and suctioning showed that all looked good with no evidence of bleeding or bile leakage. We then evacuated CO2 and removed the trocar sleeves. Skin wounds were closed with subcuticular 4-0 Monocryl skin suture. The wounds were dressed with Exofin surgical adhesive. Patient was awakened and taken to recovery in good condition. Sponge needle counts were correct x2. Estimated Blood Loss -5 Drains No Packing No Pathology Yes (Gallbladder) Complications No immediate complications Condition Stable Disposition PACU [facility] Billing Surgery - Charge Forward: Surgery Billing (Laparoscopic cholecystectomy)
[2022-10-25] MEDS: fentaNYL CITRATE INJ (*CRX) 100 MCG/2 ML VIAL 25 MCG IV PUSH ×3 (16:00→16:20)
[2022-10-25] MEDS: oxyCODONE HCL (*CRX) 5 MG TAB IR PO (16:59)
== END 2022-10-25 18:06 | disposition home or self-care (01) ==
LOC: ANHED 13:23 → ANH3MEDSUR 13:59 → ANHSURGERY 14:02
PROVIDERS: Emergency Provider Emergency Medicine; PCP Family Medicine; Visit Provider Surgery
PROC: 0FT44ZZ Resection of Gallbladder, Percutaneous Endoscopic Approach (ICD-10-PCS; CPT 47562; principal; 2022-10-25 14:30)
DX: K80.10 Calculus of gallbladder with chronic cholecystitis without obstruction (principal); K21.9 Gastro-esophageal reflux disease without esophagitis; E03.9 Hypothyroidism, unspecified; F33.1 Major depressive disorder, recurrent, moderate; D64.9 Anemia, unspecified
CPT/HCPCS: 47562; 36415; 76705; 80053; 81003; 81025; 83690; 85025; 88304; 96361; 96374; 96375; 96376; 99285; A9270; C1713; J0690; J1100; J1170; J2250; J2405; J2704; J2710; J3010; J7030; J7120

== ENCOUNTER 2023-07-18 15:48 | Outpatient (CLI) | payer BC, SELFPAY ==
--- NOTE | ~2023-07-18 | XR_ITS ---
EXAMINATION: XR lumbar spine 2-3V DATE: 07/18/2023 16:17 INDICATION: Dorsalgia, unspecified. TECHNIQUE: 3 views of lumbar spine were obtained. COMPARISON: None. FINDINGS: Bone alignment is normal. Vertebral body heights and intervertebral disc heights are normal . There are endplate osteophytes at multiple levels. The facet joints are unremarkable. Surgical clip s in the right upper quadrant are likely from cholecystectomy. IMPRESSION: 1. Mild lumbar spondylosis. Reviewed, dictated and finalized at location E. IMPRESSION: 1. Mild lumbar spondylosis.
--- NOTE | ~2023-07-18 | XR_ITS ---
EXAMINATION: XR knee LT 3V DATE: 07/18/2023 16:17 INDICATION: Left knee pain TECHNIQUE: Anteroposterior, sunrise and flexed lateral views of the left knee were obtained COMPARISON: None. FINDINGS: Alignment is normal. No fracture. Joint spaces are normal. No joint effusion. Soft tissues are unrem arkable. IMPRESSION: 1. Negative left knee radiographs. Reviewed, dictated and finalized at location A.
== END 2023-07-18 15:49 | disposition home or self-care (01) ==
PROVIDERS: PCP Family Medicine; Visit Provider Family Medicine
DX: M25.562 Pain in left knee (principal); M47.816 Spondylosis without myelopathy or radiculopathy, lumbar region; M54.9 Dorsalgia, unspecified
CPT/HCPCS: 72100; 73562

== ENCOUNTER 2023-09-16 09:00 | Outpatient (RCR) | payer BC, SELFPAY ==
--- NOTE | 2023-08-14 09:09 | PTOPEVAL1 ---
Assessment and note entered by Zeyad Peña Evaluation Information Assessment Status Evaluation Diagnosis saccrococcygeal disorder, left knee pain Onset 07/28/23 Subjective Information Pt. reports that she has had back pain for multiple years. She reports that she had a recent flare up in her back pain about 2 weeks ago. She states that she has a daughter with special needs who needs frequent lifting. 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 She states that she does not do any formal exercise. She states that she has had xray. She reports that her knees have bothered her for about a year. She notices knee pain mostly with squatting, kneeling and stairs. She avoids squatting activities due to knee pain. She reports that her back pain is currently affecting her sleep. She reports that getting out of bed is difficult. She states that her knee pain has hindered her ability to participate in exercise. She reports that her goal for therapy is to decrease her back and knee pain. Reported Pain Level Pain Score 3,0: Self Report Assessment PT Clinical Summary Pt. is a 57 year old female who enters the clinic with bilateral knee pain and low back pain. She presents with impaired postural awareness, impaired flexibility, impaired proximal l.e. strength and pain on this date. Continued skilled PT is indicated in order to improve these areas to allow the pt. to be able to complete all IADL's without complication. Plan of Care Interventions Electrical Stimulation,Hot Pack/Cold Pack,Manual Therapy,Mechanical Traction,Neuro Re-education, Patient/Caregiver Educati,Therapeutic Activities, Therapeutic Exercise PT Services Indicated Yes Treatment Frequency and 2x/week x 10 visits Duration These treatments will address the objective and functional deficits as defined above. The patient will be advanced safely and appropriately in order for the patient to progress towards his/her prior level of function. Additional exercises will be introduced and as well as a comprehensive home exercise program upon discharge, if needed, ?to ensure carryover of functional gains achieved in the clinic. This treatment plan has been reviewed and agreement upon by the patient.
--- NOTE | 2023-08-14 09:10 | OPREHPOC ---
Outpatient Therapy Plan of Care This is a Multidisciplinary Plan of Care that may contain components documented by all disciplines (PT, OT, and ST.) PT Problem 1 PT Problem #1 Knowledge Deficit PT Goal 1 Goal Independent with a HEP focusing on trunk mobility and proximal l.e. strength. Target Visit 2 PT Problem 2 PT Problem #2 Pain PT Goal 1 Goal Reduce reports of back pain to 4/10 at worst with prolonged standing activities at both the knees and low back. Target Visit 10 PT Problem 3 PT Problem #3 Impaired Strength PT Goal 1 Goal Pt. will increase bilateral hip abduction strength to 5/5 Target Visit 10 PT Problem 4 PT Problem #4 Impaired Functional Mobil PT Goal 1 Goal Pt. will complete 10 steps with 2/10 pain at worst and reciprocal pattern Target Visit 10
--- NOTE | 2023-08-30 08:43 | PCPTNOTE ---
Patient called & cancelled scheduled appointment this date due to child being sick.
--- NOTE | 2023-09-06 14:25 | PCPTNOTE ---
today's appt was canceled due to therapist ill.
--- NOTE | 2023-09-20 11:46 | PCPTNOTE ---
pt called and canceled today's reeval appt/ rescheduled 12-;
--- NOTE | 2023-10-04 09:31 | PCPTNOTE ---
pt called and canceled reeval due to illness;
--- NOTE | 2023-10-10 14:49 | PTOPDC ---
Assessment and note entered by Valentina Clement, PT Discharge Information Assessment PT Clinical Summary PHYSICAL THERAPY DISCHARGE Barbara has received 6 PT sessions, from Aug 14 to Sep 16. She called/canceled 3 appointments. She canceled the reevaluation and stated she is doing better and did not need to come back for any more therapy. Discharge PT per pt request. The goals were not addressed. Plan of Care PT Services Indicated No
== END 2023-10-10 15:07 | disposition home or self-care (01) ==
LOC: ANHPT 09:00
PROVIDERS: PCP Family Medicine; Visit Provider Family Medicine
DX: M53.3 Sacrococcygeal disorders, not elsewhere classified (principal); M25.569 Pain in unspecified knee; M25.562 Pain in left knee
CPT/HCPCS: 97014; 97110; 97161; 97530; G0283

== ENCOUNTER 2024-04-14 09:54 | Outpatient (CLI) | payer BC, SELFPAY ==
--- NOTE | ~2024-04-14 | XR_ITS ---
EXAMINATION: XR lumbar spine 2-3V DATE: 04/14/2024 10:08 INDICATION: Low back pain, unspecified. TECHNIQUE: 3 views of lumbar spine including standing views were obtained. COMPARISON: Lumbar spine radiographs 07/18/2023 FINDINGS: Bone alignment is normal. Vertebral body heights and intervertebral disc heights are normal . There are endplate osteophytes at multiple. There is multilevel [id number] facet joint osteoa rthritis. Surgical clips in the right upper quadrant are likely from cholecystectomy. IMPRESSION: 1. Mild lumbar spondylosis. Reviewed, dictated and finalized at location A. IMPRESSION: 1. Mild lumbar spondylosis.
== END 2024-04-14 09:55 ==
LOC: MICIMG 09:56
PROVIDERS: PCP Family Medicine; Visit Provider Physician Assistant
DX: M47.896 Other spondylosis, lumbar region (principal)
CPT/HCPCS: 72100